=== PATIENT | male | born 1980 | race Caucasian/White ===

== ENCOUNTER 2021-11-25 03:50 | Emergency (ER) | payer OTHER ==
[2021-11-25 04:47] LABS: HEMOGLOBIN 13.6 gm/dl (14.0-17.5); RED BLOOD COUNT 5.08 M/UL (4.20-5.50)
[2021-11-25 05:16] LABS: BUN/CREATININE RATIO 17 (0-10)
[2021-11-25] MEDS ORDERED: ZOFRAN 4 MG TAB4 MG PO (05:22)
[2021-11-25] MEDS ORDERED: PROTONIX40 MG PO (05:23)
== END 2021-11-25 05:40 | disposition home or self-care (01) ==
LOC: ER1 03:50
PROVIDERS: Physician Assistant
DX: K80.20 Calculus of gallbladder without cholecystitis without obstruction (principal); F17.210 Nicotine dependence, cigarettes, uncomplicated; Z88.5 Allergy status to narcotic agent
CPT/HCPCS: 71045; 80053; 82550; 82553; 83605; 83690; 83874; 84484; 85025; 93005; 96374; 96375; 99284; J1885; J2405; J7030; Q9967